=== PATIENT | female | born 1960 | race Caucasian/White ===

== ENCOUNTER 2019-12-16 13:31 | Inpatient (IN) ==
[2019-12-16 14:10] LABS: Basophils % 0.6 % (0.0-0.8); Eosinophils # 0.2 10*3/uL (0.0-0.87); Eosinophils % 2.6 % (0.00-10.9); Hematocrit 56.4 VOL% (35.7-47.0); Hemoglobin 18.1 GM/DL (12.0-16.0); Immature Granulocytes % 0.4 %; Immature Granulocytes Absolute 0.03 #; Lymphocytes # 2.2 10*3/uL (1.4-4.0); Lymphocytes % 31.6 % (21.3-54.2); Mean Corpuscular HGB Conc 32.1 GM/DL (32-36); Mean Corpuscular Volume 78.9 FL (87-102); Mean Platelet Volume 10.5 FL (9.6-12.0); Monocytes % 4.6 % (1.7-12.7); Neutrophils % 60.2 % (38.7-73.9); Platelet Count 109 T/CUMM (130-400); Red Blood Count 7.15 MC/CUMM (3.8-5.5); Red Cell Distribution Width 16.9 % (9.3-17.3)
[2019-12-16 14:23] LABS: INR 1.7; PT Patient Result 17.9 SECS (9.6-12.2)
[2019-12-16 14:29] LABS: Alanine Aminotransferase 25 U/L (13-56); Albumin 4.1 G/DL (3.4-5.0); Alkaline Phosphatase 186 U/L (45-117); Aspartate Amino Transferase 17 U/L (0-37); Blood Urea Nitrogen 27 MG/DL (7-18); Calcium 8.9 MG/DL (8.5-10.1); Estimated Glom Filtration Rate 40 ML/MIN; Glucose 156 MG/DL (74-106); Osmolality,Calculated 277.1 MOS/KG (273-304); Total Protein 7.8 G/DL (6.4-8.3); Troponin I 0.242 NG/ML (0.00-0.045)
[2019-12-16] MEDS ORDERED: POTASSIUM BICARB EFFERVESCENT 25 MEQ TABLET PO ONE (14:36)
[2019-12-16 15:26] LABS: Apearance,Urine CLEAR (Clear); Bilirubin,Urine Negative (Negative); Blood, Urine Negative (Negative); Glucose,Urine (UA) 150 mg/dL (Negative); Hyaline Casts,Urine 7 /LPF (0-3); Ketones,Urine Negative (Negative); Mucus,Urine Occasional /LPF (Occasional); Nitrite,Urine Negative (Negative); Protein,Urine 30 MG/DL; RBC,Urine 1 /HPF (0-4); Squamous Epithelial Cell,Urine Occasional /HPF (0-10); Urine Color Yellow (Yellow); Urine Specific Gravity 1.014 (1.001-1.035); Urine Urobilinogen < 2.0 EU/DL (0.2-1.0); WBC,Urine <1 /HPF (0-6)
[2019-12-16 15:29] LABS: Barbiturates Screen,Urine Negative (Negative); Benzodiazepines Screen,Urine Negative (Negative); Cannabinoid Screen,Urine Negative (Negative); Opiate Screen,Urine Negative (Negative); Phencyclidine Screen,Urine Negative (Negative)
[2019-12-16] MEDS ORDERED: SODIUM CHLORIDE 0.9% 1,000 ML IV STA (15:54)
[2019-12-16] MEDS ORDERED: GLUCAGON 1 MG VIAL IM PRN (15:59)
[2019-12-16] MEDS ORDERED: ALUMINUM/MAGNES/SIMETH MAX STR 30 ML UDCUP PO PRN (15:59)
[2019-12-16] MEDS ORDERED: BISACODYL 5 MG TABLET PO PRN (15:59)
[2019-12-16] MEDS ORDERED: ONDANSETRON 4 MG/2 ML VIAL IV PRN (15:59)
[2019-12-16] MEDS ORDERED: DEXTROSE 10% 250 ML BAG IV PRN (15:59)
[2019-12-16] MEDS ORDERED: SODIUM CHLORIDE 0.9% 1,000 ML IV SCH (16:00)
[2019-12-16] MEDS ORDERED: POTASSIUM CHLORIDE 20 MEQ TABLET PO STA (16:02)
[2019-12-16] MEDS ORDERED: MAGNESIUM SULF RIDER 4 GM in PREMIX 1 EACH IV PRN (16:03)
[2019-12-16] MEDS ORDERED: MAGNESIUM SULF RIDER 2 GM in PREMIX 1 EACH IV PRN (16:03)
[2019-12-16] MEDS ORDERED: ASPIRIN CHEW 81 MG TABLET PO STA (16:13)
[2019-12-16] MEDS ORDERED: SODIUM CHLORIDE 0.9% 500 ML IV STA (16:20)
[2019-12-16 16:23] LABS: Risk Ratio 3.07; VLDL CHOLESTEROL 28.4 MG/DL
[2019-12-16] MEDS ORDERED: LORazepam 2 MG/1 ML VIAL IV PRN (16:42)
[2019-12-16 16:45] LABS: Folate 12.6 NG/ML (5.4-24.0)
[2019-12-16] MEDS ORDERED: WARFARIN 3 MG TABLET PO ONE (17:11)
[2019-12-16] MEDS ORDERED: DIGOXIN 0.125 MG TABLET PO SCH (17:12)
[2019-12-16] MEDS ORDERED: INFLUENZA VIRUS VACCINE 0.5 ML SYRINGE IM ONE (17:23)
[2019-12-16] MEDS: INSULIN REGULAR 100 UNIT/ML SUBCUT SCH ×2 (17:24→21:24)
[2019-12-16] MEDS ORDERED: WARFARIN 5 MG TABLET PO SCH ×2 (18:00)
[2019-12-16] MEDS ORDERED: dilTIAZem Drip 125 MG/125 ML PREMIX IV SCH (18:00)
[2019-12-16 19:05] LABS: Troponin I 0.254 NG/ML (0.00-0.045)
[2019-12-16 19:10] LABS: Free T4 (Free Thyroxine) 1.32 NG/DL (0.76-1.46); Thyroid Stimulating Hormone 0.904 uIU/ml (0.358-3.74)
[2019-12-16 20:23] LABS: Troponin I 0.276 NG/ML (0.00-0.045)
[2019-12-16] MEDS: LACOSAMIDE 50 MG TABLET PO SCH (21:24)
[2019-12-16] MEDS: SILDENAFIL 20 MG TABLET PO SCH (21:24)
[2019-12-16 23:23] LABS: Troponin I 0.216 NG/ML (0.00-0.045)
[2019-12-17] MEDS: DIGOXIN 0.25 MG TABLET PO SCH ×2 (00:01→05:54)
[2019-12-17 05:21] LABS: Basophils % 0.6 % (0.0-0.8); Eosinophils # 0.1 10*3/uL (0.0-0.87); Eosinophils % 1.6 % (0.00-10.9); Hematocrit 45.4 VOL% (35.7-47.0); Hemoglobin 14.7 GM/DL (12.0-16.0); Immature Granulocytes % 0.5 %; Immature Granulocytes Absolute 0.03 #; Lymphocytes # 2.2 10*3/uL (1.4-4.0); Lymphocytes % 34.8 % (21.3-54.2); Mean Corpuscular HGB Conc 32.4 GM/DL (32-36); Mean Corpuscular Volume 78.1 FL (87-102); Mean Platelet Volume 10.6 FL (9.6-12.0); Monocytes % 5.2 % (1.7-12.7); Neutrophils % 57.3 % (38.7-73.9); Platelet Count 127 T/CUMM (130-400); Red Blood Count 5.81 MC/CUMM (3.8-5.5); White Blood Count 6.2 T/CUMM (4-12)
[2019-12-17 05:25] LABS: INR 1.7; PT Patient Result 18.5 SECS (9.6-12.2)
[2019-12-17 06:03] LABS: Calcium 8.7 MG/DL (8.5-10.1); Osmolality,Calculated 275.1 MOS/KG (273-304)
[2019-12-17] MEDS: INSULIN REGULAR 100 UNIT/ML SUBCUT SCH ×2 (08:03→11:05)
[2019-12-17] MEDS: SILDENAFIL 20 MG TABLET PO SCH ×2 (08:07→08:27)
[2019-12-17 08:17] LABS: Apearance,Urine CLEAR (Clear); Bilirubin,Urine Negative (Negative); Blood, Urine Small mg/dL (Negative); Glucose,Urine (UA) Negative (Negative); Ketones,Urine Negative (Negative); Nitrite,Urine Negative (Negative); Protein,Urine Negative; RBC,Urine 2 /HPF (0-4); Squamous Epithelial Cell,Urine Occasional /HPF (0-10); Urine Color Straw (Yellow); Urine Specific Gravity 1.004 (1.001-1.035); Urine Urobilinogen < 2.0 EU/DL (0.2-1.0); WBC,Urine 1 /HPF (0-6)
[2019-12-17] MEDS: LACOSAMIDE 50 MG TABLET PO SCH (08:27)
[2019-12-17 11:08] VITALS: BP 109/58
[2019-12-17] MEDS ORDERED: DIGOXIN 0.125 MG TABLET PO SCH (13:00)
[2019-12-19] MEDS ORDERED: WARFARIN 5 MG TABLET PO SCH (18:00)
== END 2019-12-17 13:58 | disposition home or self-care (01) | DRG 310 ==
LOC: EDBD → EDUNIT# → N.ED 13:31 → N.EDINP 15:59 → SUATTDRO 15:59 → N.TELES 16:43
PROVIDERS: ADMIT Internal Medicine; ATTEND Internal Medicine

== ENCOUNTER 2020-01-25 15:47 | Observation (INO) ==
[2020-01-25 16:38] LABS: Basophils # 0.1 10*3/uL (0.0-0.2); Eosinophils # 0.2 10*3/uL (0.0-0.87); Eosinophils % 3.1 % (0.00-10.9); Hematocrit 48.5 VOL% (35.7-47.0); Hemoglobin 15.9 GM/DL (12.0-16.0); Immature Granulocytes % 0.3 %; Immature Granulocytes Absolute 0.02 #; Lymphocytes # 1.9 10*3/uL (1.4-4.0); Lymphocytes % 32.4 % (21.3-54.2); Mean Corpuscular HGB Conc 32.8 GM/DL (32-36); Mean Corpuscular Volume 80.3 FL (87-102); Mean Platelet Volume 9.2 FL (9.6-12.0); Monocytes % 6.9 % (1.7-12.7); Neutrophils % 56.3 % (38.7-73.9); Platelet Count 105 T/CUMM (130-400); Red Blood Count 6.04 MC/CUMM (3.8-5.5); Red Cell Distribution Width 18.2 % (9.3-17.3); White Blood Count 5.8 T/CUMM (4-12)
[2020-01-25 16:51] LABS: Albumin 3.5 G/DL (3.4-5.0); Bilirubin,Total 0.6 MG/DL (0.2-1.0); Calcium 8.7 MG/DL (8.5-10.1); Osmolality,Calculated 276.5 MOS/KG (273-304); Total Protein 7.3 G/DL (6.4-8.3)
[2020-01-25 16:52] LABS: PT Patient Result 77.3 SECS (9.8-11.9)
[2020-01-25 16:53] LABS: INR 8.1
[2020-01-25] MEDS ORDERED: PHYTONADIONE 10 MG/1 ML AMP SUBCUT STA (16:56)
[2020-01-25] MEDS ORDERED: ONDANSETRON 4 MG/2 ML VIAL IV PRN (18:00)
[2020-01-25] MEDS ORDERED: DEXTROSE 10% 250 ML BAG IV PRN (18:00)
[2020-01-25] MEDS ORDERED: DOCUSATE SODIUM 100 MG CAPSULE PO PRN (18:00)
[2020-01-25] MEDS ORDERED: GLUCAGON 1 MG VIAL IM PRN (18:00)
[2020-01-25] MEDS ORDERED: diphenhydrAMINE CAP 25 MG CAPSULE PO PRN (18:04)
[2020-01-25] MEDS ORDERED: POTASSIUM CHLORIDE 20 MEQ TABLET PO PRN (18:26)
[2020-01-25] MEDS: SILDENAFIL 20 MG TABLET PO SCH (20:59)
[2020-01-25] MEDS: INSULIN LISPRO 100 UNIT/ML SUBCUT SCH (20:59)
[2020-01-25] MEDS: SODIUM CHLORIDE 0.9% 1,000 ML IV SCH (20:59)
[2020-01-26] MEDS: SODIUM CHLORIDE 0.9% 1,000 ML IV SCH (05:00)
[2020-01-26 05:47] LABS: Basophils # 0.1 10*3/uL (0.0-0.2); Basophils % 0.9 % (0.0-0.8); Eosinophils # 0.2 10*3/uL (0.0-0.87); Eosinophils % 2.8 % (0.00-10.9); Hematocrit 43.8 VOL% (35.7-47.0); Hemoglobin 14.3 GM/DL (12.0-16.0); Immature Granulocytes % 0.5 %; Immature Granulocytes Absolute 0.03 #; Lymphocytes # 2.3 10*3/uL (1.4-4.0); Lymphocytes % 40.7 % (21.3-54.2); Mean Corpuscular HGB Conc 32.6 GM/DL (32-36); Mean Corpuscular Volume 80.4 FL (87-102); Mean Platelet Volume 10.3 FL (9.6-12.0); Neutrophils % 49.1 % (38.7-73.9); Platelet Count 94 T/CUMM (130-400); Red Blood Count 5.45 MC/CUMM (3.8-5.5); Red Cell Distribution Width 17.8 % (9.3-17.3); White Blood Count 5.7 T/CUMM (4-12)
[2020-01-26 06:01] LABS: INR 4.1; PT Patient Result 41.2 SECS (9.8-11.9)
[2020-01-26 06:18] LABS: Platelet Estimate Decreased
[2020-01-26 06:19] LABS: Albumin 2.9 G/DL (3.4-5.0); Calcium 7.9 MG/DL (8.5-10.1); Osmolality,Calculated 286.1 MOS/KG (273-304); Thyroid Stimulating Hormone 2.05 uIU/ml (0.358-3.74); Total Protein 5.8 G/DL (6.4-8.3)
[2020-01-26] MEDS ORDERED: FUROSEMIDE 40 MG TABLET PO SCH (09:00)
[2020-01-26] MEDS ORDERED: POTASSIUM CHLORIDE 10 MEQ TABLET PO SCH (09:00)
[2020-01-26] MEDS: SILDENAFIL 20 MG TABLET PO SCH (10:10)
[2020-01-26] MEDS: INSULIN LISPRO 100 UNIT/ML SUBCUT SCH (10:12)
[2020-01-26 12:01] VITALS: BP 115/60
[2020-01-27] MEDS ORDERED: DIGOXIN 0.125 MG TABLET PO SCH (08:00)
== END 2020-01-26 13:05 | disposition home or self-care (01) ==
LOC: N.EDINP 15:47 → N.ED 15:47 → N.TELES 17:51
PROVIDERS: ADMIT Internal Medicine; ATTEND Internal Medicine

== ENCOUNTER 2020-01-31 23:59 | Inpatient (IN) ==
[2020-02-01] MEDS ORDERED: INSULIN REGULAR 100 UNIT/ML IV STA (00:21)
[2020-02-01] MEDS ORDERED: ONDANSETRON 4 MG/2 ML VIAL IV STA ×3 (00:21→03:45)
[2020-02-01] MEDS ORDERED: SODIUM CHLORIDE 0.9% 1,000 ML IV STA ×2 (00:21→01:37)
[2020-02-01 01:04] LABS: Basophils # 0.1 10*3/uL (0.0-0.2); Basophils % 1.1 % (0.0-0.8); Eosinophils # 0.1 10*3/uL (0.0-0.87); Eosinophils % 1.1 % (0.00-10.9); Hemoglobin 17.5 GM/DL (12.0-16.0); Immature Granulocytes % 0.4 %; Immature Granulocytes Absolute 0.03 #; Lymphocytes # 2.2 10*3/uL (1.4-4.0); Lymphocytes % 30.8 % (21.3-54.2); Mean Corpuscular HGB Conc 32.4 GM/DL (32-36); Mean Corpuscular Volume 81.1 FL (87-102); Mean Platelet Volume 10.9 FL (9.6-12.0); Monocytes % 7.2 % (1.7-12.7); Neutrophils % 59.4 % (38.7-73.9); Platelet Count 161 T/CUMM (130-400); Red Blood Count 6.66 MC/CUMM (3.8-5.5); Red Cell Distribution Width 19.7 % (9.3-17.3); White Blood Count 7.3 T/CUMM (4-12)
[2020-02-01 01:20] LABS: Alanine Aminotransferase 53 U/L (13-56); Albumin 4.1 G/DL (3.4-5.0); Alkaline Phosphatase 269 U/L (45-117); Amylase 19 U/L (25-115); Aspartate Amino Transferase 42 U/L (0-37); Blood Urea Nitrogen 32 MG/DL (7-18); Calcium 9.7 MG/DL (8.5-10.1); Estimated Glom Filtration Rate 21 ML/MIN; Glucose 458 MG/DL (74-106); Osmolality,Calculated 286.8 MOS/KG (273-304); Total Protein 8.2 G/DL (6.4-8.3)
[2020-02-01] MEDS ORDERED: PIPERACILLIN/TAZOBACTAM 3,375 MG in SODIUM CHLORIDE 0.9% 100 ML IV STA (01:27)
[2020-02-01] MEDS ORDERED: PIPERACILLIN/TAZOBACTAM 3,375 MG VIAL IV ONE (01:29)
[2020-02-01 01:33] LABS: Apearance,Urine Slightly Hazy (Clear); Bacteria,Urine Many /HPF (Few); Bilirubin,Urine Negative (Negative); Blood, Urine Moderate mg/dL (Negative); Calcium Oxalate Crystals,Urine Occasional /HPF (Few); Glucose,Urine (UA) >=500 mg/dL (Negative); Ketones,Urine 80 mg/dL (Negative); Mucus,Urine Occasional /LPF (Occasional); Nitrite,Urine Negative (Negative); Protein,Urine Negative; RBC,Urine 3 /HPF (0-4); Squamous Epithelial Cell,Urine Occasional /HPF (0-10); Urine Color Yellow (Yellow); Urine Specific Gravity 1.016 (1.001-1.035); Urine Urobilinogen < 2.0 EU/DL (0.2-1.0)
[2020-02-01 01:48] LABS: ABG Base Excess -8.3 MMOL/L (-2.5-2.5); ABG HCO3 17.9 MMOL/L (20-26); ABG Oxygen Saturation 97.8 % (95-100); ABG PCO2 25.5 MM HG (35-48); ABG PH 7.381 (7.35-7.45); ABG PO2 90.9 MM HG (80-95); ABG TCO2 12.8 MMOL/L (23-27)
[2020-02-01 02:24] LABS: INR 1.1; PT Patient Result 11.3 SECS (9.8-11.9)
[2020-02-01] MEDS ORDERED: MAGNESIUM SULF RIDER 2 GM in PREMIX 1 EACH IV PRN (02:24)
[2020-02-01] MEDS ORDERED: DEXTROSE 50% 25 GM/50 ML VIAL IV PRN ×2 (02:24)
[2020-02-01] MEDS ORDERED: MAGNESIUM SULF RIDER 4 GM in PREMIX 1 EACH IV PRN (02:24)
[2020-02-01] MEDS ORDERED: SODIUM PHOSPHATE IV PRN (02:24)
[2020-02-01] MEDS ORDERED: SODIUM BICARB INJ 100 MEQ in STERILE WATER INJ 400 ML IV PRN (02:24)
[2020-02-01] MEDS ORDERED: SODIUM CHLORIDE 0.9% IV PRN (02:24)
[2020-02-01] MEDS ORDERED: SODIUM CHLORIDE 0.9% 1,000 ML IV ONE ×2 (02:24→23:29)
[2020-02-01] MEDS ORDERED: INSULIN REGULAR 100 UNIT/ML IV ONE (02:24)
[2020-02-01] MEDS ORDERED: PROMETHAZINE 25 MG/1 ML VIAL IM STA (02:29)
[2020-02-01] MEDS ORDERED: PROMETHAZINE 25 MG/1 ML VIAL ONE (02:29)
[2020-02-01] MEDS ORDERED: INSULIN REGULAR DRIP 100 ML IV SCH (02:30)
[2020-02-01 03:37] LABS: Basophils # 0.1 10*3/uL (0.0-0.2); Basophils % 0.7 % (0.0-0.8); Eosinophils # 0.1 10*3/uL (0.0-0.87); Hematocrit 49.3 VOL% (35.7-47.0); Hemoglobin 16.3 GM/DL (12.0-16.0); Immature Granulocytes % 0.6 %; Immature Granulocytes Absolute 0.04 #; Lymphocytes # 1.6 10*3/uL (1.4-4.0); Lymphocytes % 23.9 % (21.3-54.2); Mean Corpuscular HGB Conc 33.1 GM/DL (32-36); Mean Corpuscular Volume 79.8 FL (87-102); Mean Platelet Volume 9.4 FL (9.6-12.0); Monocytes % 8.3 % (1.7-12.7); Neutrophils % 65.5 % (38.7-73.9); Platelet Count 120 T/CUMM (130-400); Red Blood Count 6.18 MC/CUMM (3.8-5.5); Red Cell Distribution Width 19.3 % (9.3-17.3); White Blood Count 6.8 T/CUMM (4-12)
[2020-02-01 03:39] LABS: ABG Base Excess -4.5 MMOL/L (-2.5-2.5); ABG HCO3 20.7 MMOL/L (20-26); ABG Oxygen Saturation 94.8 % (95-100); ABG PCO2 34.1 MM HG (35-48); ABG PH 7.374 (7.35-7.45); ABG PO2 71.3 MM HG (80-95)
[2020-02-01 03:57] LABS: Calcium 8.5 MG/DL (8.5-10.1); Osmolality,Calculated 282.7 MOS/KG (273-304)
[2020-02-01] MEDS: SODIUM CHLORIDE 0.9% 1,000 ML IV SCH ×2 (04:39→07:25)
[2020-02-01] MEDS: POTASSIUM CHLORIDE RIDER 10 MEQ in PREMIX 1 EACH IV PRN ×2 (05:19→06:19)
[2020-02-01] MEDS ORDERED: DEXT 5% NACL 0.45% KCL 40 MEQ 40 MEQ/1,000 ML BAG IV SCH (06:00)
[2020-02-01] MEDS ORDERED: SODIUM CHLORIDE 0.9% 1,000 ML IV SCH (07:24)
[2020-02-01] MEDS: ONDANSETRON 4 MG/2 ML VIAL IV PRN ×3 (08:24→19:36)
[2020-02-01] MEDS ORDERED: GLUCAGON 1 MG VIAL IM PRN (08:26)
[2020-02-01] MEDS ORDERED: DEXTROSE 10% 250 ML BAG IV PRN (08:26)
[2020-02-01 08:27] LABS: Calcium 7.8 MG/DL (8.5-10.1)
[2020-02-01] MEDS ORDERED: PROMETHAZINE 25 MG/1 ML VIAL IM PRN (08:36)
[2020-02-01 08:52] LABS: Troponin I 0.227 NG/ML (0.00-0.045)
[2020-02-01] MEDS ORDERED: LACTATED RINGERS 1,000 ML IV SCH (09:00)
[2020-02-01] MEDS: INSULIN REGULAR 100 UNIT/ML SUBCUT SCH ×7 (09:02→21:40)
[2020-02-01] MEDS: DIGOXIN 0.125 MG TABLET PO SCH (09:02)
[2020-02-01] MEDS: POTASSIUM CHLORIDE 20 MEQ TABLET PO SCH ×3 (09:03→14:11)
[2020-02-01] MEDS: PIPERACILLIN/TAZOBACTAM 3,375 MG in SODIUM CHLORIDE 0.9% 100 ML IV SCH ×2 (09:35→17:16)
[2020-02-01] MEDS: SILDENAFIL 20 MG TABLET PO SCH ×3 (09:35→21:45)
[2020-02-01] MEDS: DEXTROSE 5% LACTATED RINGERS 1,000 ML IV SCH ×3 (11:48→23:05)
[2020-02-01] MEDS: CHOLESTYRAMINE 4 GM PACK PO SCH ×2 (14:11→21:45)
[2020-02-01 15:47] LABS: Osmolality,Calculated 279.8 MOS/KG (273-304)
[2020-02-01 16:11] LABS: Troponin I 0.239 NG/ML (0.00-0.045)
[2020-02-01] MEDS ORDERED: MAGNESIUM SULF RIDER 2 GM in PREMIX 1 EACH IV ONE (16:22)
[2020-02-01] MEDS ORDERED: SODIUM CHLORIDE 0.45% 1,000 ML IV SCH (19:24)
[2020-02-01] MEDS: CHOLECALCIFEROL 1,000 UNIT TABLET PO SCH (21:45)
[2020-02-01] MEDS: tiZANidine 4 MG TABLET PO PRN (21:46)
[2020-02-02 00:01] LABS: Troponin I 0.187 NG/ML (0.00-0.045)
[2020-02-02] MEDS: INSULIN REGULAR 100 UNIT/ML SUBCUT SCH ×8 (00:40→21:37)
[2020-02-02] MEDS: PIPERACILLIN/TAZOBACTAM 3,375 MG in SODIUM CHLORIDE 0.9% 100 ML IV SCH ×3 (00:41→17:25)
[2020-02-02] MEDS ORDERED: BISMUTH SUBSALICYLATE 30 ML/524 MG 240 ML/BOTTLE PO PRN (03:21)
[2020-02-02] MEDS: ONDANSETRON 4 MG/2 ML VIAL IV PRN ×4 (03:36→21:38)
[2020-02-02 05:39] LABS: Apearance,Urine CLOUDY (Clear); Bacteria,Urine Occasional /HPF (Few); Bilirubin,Urine Negative (Negative); Blood, Urine Large mg/dL (Negative); Glucose,Urine (UA) >=500 mg/dL (Negative); Hyaline Casts,Urine 8 /LPF (0-3); Ketones,Urine 5 mg/dL (Negative); Mucus,Urine Occasional /LPF (Occasional); Nitrite,Urine Negative (Negative); Protein,Urine 30 MG/DL; RBC,Urine 139 /HPF (0-4); Uric Acid Crystals,Urine Few /HPF (<1); Urine Color Yellow (Yellow); Urine Specific Gravity 1.017 (1.001-1.035); Urine Urobilinogen < 2.0 EU/DL (0.2-1.0); WBC,Urine 63 /HPF (0-6)
[2020-02-02 06:04] LABS: Calcium 8.2 MG/DL (8.5-10.1); Osmolality,Calculated 276.5 MOS/KG (273-304)
[2020-02-02] MEDS: POTASSIUM CHLORIDE 20 MEQ TABLET PO SCH (08:11)
[2020-02-02] MEDS: SILDENAFIL 20 MG TABLET PO SCH ×3 (08:12→21:36)
[2020-02-02] MEDS: CHOLESTYRAMINE 4 GM PACK PO SCH (08:12)
[2020-02-02] MEDS: DEXTROSE 5% LACTATED RINGERS 1,000 ML IV SCH (08:40)
[2020-02-02] MEDS: LOPERAMIDE 2 MG CAPSULE PO PRN ×2 (16:47→21:36)
[2020-02-02] MEDS ORDERED: INSULIN GLARGINE 100 UNIT/ML SUBCUT SCH (21:00)
[2020-02-02] MEDS: CHOLECALCIFEROL 1,000 UNIT TABLET PO SCH (21:36)
[2020-02-02] MEDS: tiZANidine 4 MG TABLET PO PRN (21:36)
[2020-02-03] MEDS: PIPERACILLIN/TAZOBACTAM 3,375 MG in SODIUM CHLORIDE 0.9% 100 ML IV SCH ×2 (01:17→09:03)
[2020-02-03] MEDS: DEXTROSE 5% LACTATED RINGERS 1,000 ML IV SCH ×2 (01:21→09:09)
[2020-02-03] MEDS: INSULIN REGULAR 100 UNIT/ML SUBCUT SCH ×3 (01:22→09:01)
[2020-02-03] MEDS: LOPERAMIDE 2 MG CAPSULE PO PRN (01:22)
[2020-02-03] MEDS: ONDANSETRON 4 MG/2 ML VIAL IV PRN (09:02)
[2020-02-03] MEDS: DIGOXIN 0.125 MG TABLET PO SCH (09:03)
[2020-02-03] MEDS: POTASSIUM CHLORIDE 20 MEQ TABLET PO SCH ×2 (09:03→09:05)
[2020-02-03] MEDS: SILDENAFIL 20 MG TABLET PO SCH (09:03)
[2020-02-03 10:52] VITALS: BP 109/59
[2020-02-05] MEDS ORDERED: WARFARIN 5 MG TABLET PO SCH (20:00)
== END 2020-02-03 11:22 | disposition home or self-care (01) | DRG 638 ==
LOC: N.ED 23:59 → SUATTDRO 02-01 02:24 → N.EDINP 02-01 02:24 → N.ICU 02-01 03:59 → N.TELES 02-02 09:48
PROVIDERS: ADMIT Internal Medicine; ATTEND Internal Medicine Geriatric Medicine

== ENCOUNTER 2020-02-08 11:59 | Observation (INO) ==
[2020-02-08 13:32] LABS: Basophils # 0.1 10*3/uL (0.0-0.2); Basophils % 1.1 % (0.0-0.8); Eosinophils # 0.2 10*3/uL (0.0-0.87); Eosinophils % 3.5 % (0.00-10.9); Hemoglobin 14.9 GM/DL (12.0-16.0); Immature Granulocytes % 0.4 %; Immature Granulocytes Absolute 0.02 #; Lymphocytes # 2.4 10*3/uL (1.4-4.0); Lymphocytes % 41.5 % (21.3-54.2); Mean Corpuscular HGB Conc 32.4 GM/DL (32-36); Mean Corpuscular Volume 82.7 FL (87-102); Mean Platelet Volume 10.1 FL (9.6-12.0); Monocytes % 7.4 % (1.7-12.7); Neutrophils % 46.1 % (38.7-73.9); Platelet Count 103 T/CUMM (130-400); Red Blood Count 5.56 MC/CUMM (3.8-5.5); Red Cell Distribution Width 19.9 % (9.3-17.3); White Blood Count 5.7 T/CUMM (4-12)
[2020-02-08 13:48] LABS: INR 1.7; PT Patient Result 17.7 SECS (9.8-11.9); Partial Thromboplastin Time 33.8 SECS (23.9-33.8)
[2020-02-08 13:53] LABS: Alanine Aminotransferase 34 U/L (13-56); Albumin 2.5 G/DL (3.4-5.0); Alkaline Phosphatase 305 U/L (45-117); Aspartate Amino Transferase 31 U/L (0-37); Blood Urea Nitrogen 10 MG/DL (7-18); Calcium 8.1 MG/DL (8.5-10.1); Estimated Glom Filtration Rate 42 ML/MIN; Ferritin 33.9 ng/ml (8-252); Glucose 80 MG/DL (74-106); Osmolality,Calculated 263.4 MOS/KG (273-304); Total Protein 5.8 G/DL (6.4-8.3)
[2020-02-08 13:54] LABS: Troponin I 0.168 NG/ML (0.00-0.045)
[2020-02-08 14:24] LABS: Apearance,Urine CLEAR (Clear); Bacteria,Urine Occasional /HPF (Few); Bilirubin,Urine Negative (Negative); Blood, Urine Negative (Negative); Glucose,Urine (UA) Negative (Negative); Hyaline Casts,Urine 4 /LPF (0-3); Ketones,Urine Negative (Negative); Mucus,Urine Occasional /LPF (Occasional); Nitrite,Urine Negative (Negative); Protein,Urine Negative; RBC,Urine <1 /HPF (0-4); Urine Color Straw (Yellow); Urine Specific Gravity 1.004 (1.001-1.035); Urine Urobilinogen < 2.0 EU/DL (0.2-1.0); WBC,Urine <1 /HPF (0-6)
[2020-02-08 14:32] LABS: Barbiturates Screen,Urine Negative (Negative); Benzodiazepines Screen,Urine Negative (Negative); Cannabinoid Screen,Urine Negative (Negative); Opiate Screen,Urine Negative (Negative); Phencyclidine Screen,Urine Negative (Negative)
[2020-02-08] MEDS ORDERED: LACTULOSE 20 GM/30 ML UDCUP PO PRN (15:09)
[2020-02-08] MEDS ORDERED: GLUCAGON 1 MG VIAL IM PRN (15:09)
[2020-02-08] MEDS ORDERED: DEXTROSE 10% 250 ML BAG IV PRN (15:09)
[2020-02-08] MEDS ORDERED: guaiFENesin/DM ER 600-30 MG TABLET PO PRN (15:09)
[2020-02-08] MEDS ORDERED: FUROSEMIDE 40 MG/4 ML VIAL IV STA (15:15)
[2020-02-08] MEDS ORDERED: diphenhydrAMINE CAP 25 MG CAPSULE PO PRN (15:16)
[2020-02-08] MEDS: INSULIN REGULAR 100 UNIT/ML SUBCUT SCH ×2 (17:08→22:10)
[2020-02-08] MEDS ORDERED: WARFARIN 1 MG TABLET PO ONE (18:00)
[2020-02-08] MEDS: FUROSEMIDE 40 MG/4 ML VIAL IV SCH (18:11)
[2020-02-08] MEDS ORDERED: INSULIN GLARGINE 100 UNIT/ML SUBCUT SCH (21:00)
[2020-02-08] MEDS: SILDENAFIL 20 MG TABLET PO SCH (22:10)
[2020-02-09 06:49] LABS: Basophils % 0.8 % (0.0-0.8); Eosinophils # 0.2 10*3/uL (0.0-0.87); Eosinophils % 4.1 % (0.00-10.9); Hematocrit 40.3 VOL% (35.7-47.0); Hemoglobin 13.3 GM/DL (12.0-16.0); Immature Granulocytes % 0.4 %; Immature Granulocytes Absolute 0.02 #; Lymphocytes # 2.2 10*3/uL (1.4-4.0); Lymphocytes % 41.4 % (21.3-54.2); Mean Corpuscular Volume 82.8 FL (87-102); Mean Platelet Volume 10.1 FL (9.6-12.0); Neutrophils % 44.3 % (38.7-73.9); Red Blood Count 4.87 MC/CUMM (3.8-5.5); Red Cell Distribution Width 19.5 % (9.3-17.3); White Blood Count 5.3 T/CUMM (4-12)
[2020-02-09 06:56] LABS: Platelet Count 91 T/CUMM (130-400)
[2020-02-09 06:59] LABS: INR 1.7
[2020-02-09 07:19] LABS: Calcium 7.6 MG/DL (8.5-10.1); Risk Ratio 3.3; VLDL CHOLESTEROL 33.6 MG/DL
[2020-02-09 07:26] LABS: Anisocytosis 2+; Macrocytosis Slight; Platelet Estimate Decreased
[2020-02-09] MEDS ORDERED: MAGNESIUM OXIDE 400 MG TABLET PO ONE (07:53)
[2020-02-09] MEDS: INSULIN REGULAR 100 UNIT/ML SUBCUT SCH ×2 (08:02→11:49)
[2020-02-09 08:07] VITALS: BP 102/71
[2020-02-09] MEDS ORDERED: ONDANSETRON 4 MG/2 ML VIAL IV PRN (08:20)
[2020-02-09] MEDS: FUROSEMIDE 40 MG/4 ML VIAL IV SCH (08:31)
[2020-02-09] MEDS: SILDENAFIL 20 MG TABLET PO SCH (08:31)
[2020-02-09] MEDS ORDERED: POTASSIUM CHLORIDE 10 MEQ TABLET PO SCH (09:00)
[2020-02-09] MEDS ORDERED: tiZANidine 4 MG TABLET PO PRN (10:07)
[2020-02-09] MEDS ORDERED: WARFARIN 5 MG TABLET PO ONE (10:14)
[2020-02-09] MEDS ORDERED: LACOSAMIDE 50 MG TABLET PO SCH (10:30)
[2020-02-09] MEDS ORDERED: CHOLECALCIFEROL 1,000 UNIT TABLET PO SCH (21:00)
[2020-02-10] MEDS ORDERED: DIGOXIN 0.125 MG TABLET PO SCH (08:00)
[2020-02-10] MEDS ORDERED: AMBRISENTAN 10 MG PO SCH (09:00)
[2020-02-12] MEDS ORDERED: WARFARIN 2.5 MG TABLET PO SCH (18:00)
== END 2020-02-09 12:17 | disposition home or self-care (01) ==
LOC: N.ED 11:59 → N.EDINP 11:59 → N.TELEN 15:50
PROVIDERS: ADMIT Internal Medicine; ATTEND Internal Medicine

== ENCOUNTER 2020-05-31 15:25 | Observation (INO) ==
[2020-05-31] MEDS ORDERED: GLUCAGON 1 MG VIAL IM PRN ×2 (17:02→18:42)
[2020-05-31] MEDS ORDERED: DEXTROSE 50% 25 GM/50 ML VIAL IV PRN ×3 (17:02→18:42)
[2020-05-31 17:35] LABS: Basophils # 0.1 10*3/uL (0.0-0.2); Basophils % 1.2 % (0.0-0.8); Eosinophils # 0.1 10*3/uL (0.0-0.87); Eosinophils % 1.6 % (0.00-10.9); Hematocrit 43.2 VOL% (35.7-47.0); Hemoglobin 13.5 GM/DL (12.0-16.0); Immature Granulocytes % 0.4 %; Immature Granulocytes Absolute 0.02 #; Lymphocytes # 1.5 10*3/uL (1.4-4.0); Lymphocytes % 29.9 % (21.3-54.2); Mean Corpuscular HGB Conc 31.3 GM/DL (32-36); Mean Corpuscular Volume 70.9 FL (87-102); Monocytes % 7.6 % (1.7-12.7); Neutrophils % 59.3 % (38.7-73.9); Platelet Count 52 T/CUMM (130-400); Red Blood Count 6.09 MC/CUMM (3.8-5.5); Red Cell Distribution Width 18.9 % (9.3-17.3); White Blood Count 5.1 T/CUMM (4-12)
[2020-05-31 18:10] LABS: PT Patient Result > 178.9 SECS (9.8-11.9)
[2020-05-31 18:13] LABS: Albumin 3.4 G/DL (3.4-5.0); Bilirubin,Total 1.8 MG/DL (0.2-1.0); Calcium 8.6 MG/DL (8.5-10.1); Osmolality,Calculated 275.2 MOS/KG (273-304); Total Protein 6.5 G/DL (6.4-8.3)
[2020-05-31 18:15] LABS: INR 22.1
[2020-05-31] MEDS ORDERED: diphenhydrAMINE CAP 25 MG CAPSULE PO PRN (18:36)
[2020-05-31] MEDS ORDERED: tiZANidine 4 MG TABLET PO PRN (18:36)
[2020-05-31] MEDS ORDERED: ONDANSETRON 4 MG/2 ML VIAL IV PRN (18:42)
[2020-05-31] MEDS ORDERED: ACETAMINOPHEN 325 MG TABLET PO PRN (18:42)
[2020-05-31] MEDS ORDERED: TREPROSTINIL MISC INJ SCH (20:30)
[2020-05-31] MEDS ORDERED: PHYTONADIONE 5 MG/5 ML ORAL.SYR PO SCH (21:00)
[2020-05-31] MEDS: SILDENAFIL 20 MG TABLET PO SCH (21:28)
[2020-05-31] MEDS: LACOSAMIDE 50 MG TABLET PO SCH (21:28)
[2020-05-31] MEDS: CHOLECALCIFEROL 1,000 UNIT TABLET PO SCH (21:28)
[2020-05-31] MEDS: INSULIN GLARGINE 100 UNIT/ML SUBCUT SCH (22:26)
[2020-06-01 01:34] LABS: Hematocrit 39.6 VOL% (35.7-47.0); Hemoglobin 12.3 GM/DL (12.0-16.0)
[2020-06-01 06:09] LABS: Basophils # 0.1 10*3/uL (0.0-0.2); Basophils % 1.1 % (0.0-0.8); Eosinophils # 0.1 10*3/uL (0.0-0.87); Eosinophils % 2.2 % (0.00-10.9); Hematocrit 39.5 VOL% (35.7-47.0); Hemoglobin 12.6 GM/DL (12.0-16.0); Immature Granulocytes % 0.7 %; Immature Granulocytes Absolute 0.04 #; Lymphocytes # 1.6 10*3/uL (1.4-4.0); Lymphocytes % 30.3 % (21.3-54.2); Mean Corpuscular HGB Conc 31.9 GM/DL (32-36); Mean Corpuscular Volume 69.8 FL (87-102); Monocytes % 8.6 % (1.7-12.7); Neutrophils % 57.1 % (38.7-73.9); Platelet Count 45 T/CUMM (130-400); Red Blood Count 5.66 MC/CUMM (3.8-5.5); Red Cell Distribution Width 18.6 % (9.3-17.3); White Blood Count 5.4 T/CUMM (4-12)
[2020-06-01 06:36] LABS: Band Neutrophils 1 % (0-10); Eosinophils 3 % (0-10); Lymphocytes 18 % (20-55); Segmented Neutrophils 69 % (50-85); Total Cells Counted 100
[2020-06-01 06:37] LABS: Anisocytosis 1+; Hypochromasia 1+; Platelet Estimate Decreased
[2020-06-01 07:01] LABS: Calcium 7.9 MG/DL (8.5-10.1)
[2020-06-01 07:56] LABS: PT Patient Result 64.8 SECS (9.8-11.9)
[2020-06-01] MEDS ORDERED: FUROSEMIDE 20 MG/2 ML VIAL IV SCH (08:00)
[2020-06-01 08:18] LABS: Albumin 2.8 G/DL (3.4-5.0); Bilirubin,Direct 0.6 MG/DL (0.0-0.20); Bilirubin,Indirect 0.8 MG/DL (0.0-1.0); Bilirubin,Total 1.4 MG/DL (0.2-1.0); Total Protein 5.6 G/DL (6.4-8.3)
[2020-06-01 08:44] LABS: INR 6.7
[2020-06-01] MEDS ORDERED: INSULIN REGULAR 100 UNIT/ML SUBCUT SCH (09:00)
[2020-06-01] MEDS: SILDENAFIL 20 MG TABLET PO SCH ×3 (10:14→21:22)
[2020-06-01] MEDS: POTASSIUM CHLORIDE 20 MEQ TABLET PO SCH (10:14)
[2020-06-01] MEDS: INSULIN REGULAR 100 UNIT/ML SUBCUT SCH (10:15)
[2020-06-01] MEDS: DIGOXIN 0.125 MG TABLET PO SCH (10:15)
[2020-06-01] MEDS: LACOSAMIDE 50 MG TABLET PO SCH ×2 (10:15→21:22)
[2020-06-01] MEDS: PANTOPRAZOLE 40 MG TABLET PO SCH (10:15)
[2020-06-01] MEDS: AMBRISENTAN 10 MG PO SCH (10:16)
[2020-06-01] MEDS: FUROSEMIDE 40 MG/4 ML VIAL IV SCH (17:35)
[2020-06-01] MEDS: CHOLECALCIFEROL 1,000 UNIT TABLET PO SCH (21:22)
[2020-06-02] MEDS: INSULIN GLARGINE 100 UNIT/ML SUBCUT SCH (02:19)
[2020-06-02 04:55] LABS: INR 2.1; PT Patient Result 21.6 SECS (9.8-11.9)
[2020-06-02 05:19] LABS: Albumin 2.9 G/DL (3.4-5.0); Bilirubin,Total 1.9 MG/DL (0.2-1.0); Calcium 7.9 MG/DL (8.5-10.1); Osmolality,Calculated 272.5 MOS/KG (273-304); Total Protein 5.7 G/DL (6.4-8.3)
[2020-06-02 07:37] VITALS: BP 92/48
[2020-06-02] MEDS: AMBRISENTAN 10 MG PO SCH (08:22)
[2020-06-02] MEDS: INSULIN REGULAR 100 UNIT/ML SUBCUT SCH (08:23)
[2020-06-02] MEDS: PANTOPRAZOLE 40 MG TABLET PO SCH (09:31)
[2020-06-02] MEDS: LACOSAMIDE 50 MG TABLET PO SCH (09:31)
[2020-06-02] MEDS: FUROSEMIDE 40 MG/4 ML VIAL IV SCH (09:31)
[2020-06-02] MEDS: DIGOXIN 0.125 MG TABLET PO SCH (09:31)
[2020-06-02] MEDS: SILDENAFIL 20 MG TABLET PO SCH (09:31)
[2020-06-02] MEDS: POTASSIUM CHLORIDE 20 MEQ TABLET PO SCH (09:31)
== END 2020-06-02 12:35 | disposition home or self-care (01) ==
LOC: N.3E → SUATTDRO 16:40 → N.3E 17:00
PROVIDERS: ADMIT Internal Medicine; ATTEND Internal Medicine

== ENCOUNTER 2020-07-08 17:13 | Observation (INO) ==
[2020-07-08 18:00] LABS: Basophils # 0.1 10*3/uL (0.0-0.2); Basophils % 0.9 % (0.0-0.8); Eosinophils # 0.2 10*3/uL (0.0-0.87); Eosinophils % 2.6 % (0.00-10.9); Hematocrit 44.7 VOL% (35.7-47.0); Hemoglobin 14.3 GM/DL (12.0-16.0); Immature Granulocytes % 0.7 %; Immature Granulocytes Absolute 0.06 #; Lymphocytes # 2.4 10*3/uL (1.4-4.0); Lymphocytes % 28.4 % (21.3-54.2); Mean Corpuscular Volume 69.1 FL (87-102); Monocytes % 5.8 % (1.7-12.7); Neutrophils % 61.6 % (38.7-73.9); Red Blood Count 6.47 MC/CUMM (3.8-5.5); White Blood Count 8.5 T/CUMM (4-12)
[2020-07-08 18:02] LABS: Platelet Count 75 T/CUMM (130-400)
[2020-07-08 18:17] LABS: Calcium 8.5 MG/DL (8.5-10.1); Osmolality,Calculated 271.9 MOS/KG (273-304); Total Protein 6.7 G/DL (6.4-8.3)
[2020-07-08 18:22] LABS: Anisocytosis 1+; Burr Cells 1+
[2020-07-08 18:23] LABS: Elliptocytes Few; Platelet Estimate Decreased; Polychromasia Few; Schistocytes Few
[2020-07-08 19:39] LABS: INR 1.8; PT Patient Result 18.3 SECS (9.8-11.9)
[2020-07-08] MEDS ORDERED: FUROSEMIDE 20 MG/2 ML VIAL IV STA (19:41)
[2020-07-08] MEDS ORDERED: ACETAMINOPHEN 325 MG TABLET PO PRN (19:42)
[2020-07-08] MEDS ORDERED: ONDANSETRON 4 MG/2 ML VIAL IV PRN (19:42)
[2020-07-08] MEDS ORDERED: MORPHINE 4 MG/1 ML VIAL IV PRN (19:42)
[2020-07-08] MEDS ORDERED: GLUCAGON 1 MG VIAL IM PRN (19:42)
[2020-07-08] MEDS ORDERED: DEXTROSE 50% 25 GM/50 ML VIAL IV PRN (19:42)
[2020-07-08] MEDS ORDERED: ENOXAPARIN 60 MG/0.6 ML SYRINGE SUBCUT SCH (20:30)
[2020-07-08] MEDS: INSULIN REGULAR 100 UNIT/ML SUBCUT SCH (22:15)
[2020-07-08] MEDS ORDERED: INFLUENZA VIRUS VACCINE 0.5 ML SYRINGE IM ONE (22:37)
[2020-07-09] MEDS: ALBUTEROL/IPRATROPIUM 3 ML NEB RESP TX SCH ×4 (01:07→19:17)
[2020-07-09 06:35] LABS: Albumin 2.7 G/DL (3.4-5.0); Bilirubin,Total 1.6 MG/DL (0.2-1.0); Calcium 8.1 MG/DL (8.5-10.1); Osmolality,Calculated 275.5 MOS/KG (273-304); Total Protein 6.1 G/DL (6.4-8.3)
[2020-07-09] MEDS ORDERED: POTASSIUM CHLORIDE 20 MEQ TABLET PO PRN (07:47)
[2020-07-09] MEDS ORDERED: FUROSEMIDE 40 MG/4 ML VIAL IV SCH (08:00)
[2020-07-09] MEDS: INSULIN REGULAR 100 UNIT/ML SUBCUT SCH ×4 (09:28→21:35)
[2020-07-09] MEDS ORDERED: tiZANidine 4 MG TABLET PO PRN (10:37)
[2020-07-09] MEDS ORDERED: diphenhydrAMINE CAP 25 MG CAPSULE PO PRN (10:37)
[2020-07-09] MEDS ORDERED: IBUPROFEN 800 MG TABLET PO PRN (10:37)
[2020-07-09] MEDS ORDERED: POTASSIUM CHLORIDE 20 MEQ TABLET PO ONE (10:43)
[2020-07-09] MEDS ORDERED: WARFARIN 2.5 MG TABLET PO SCH ×2 (11:00→18:00)
[2020-07-09] MEDS: POTASSIUM CHLORIDE 10 MEQ TABLET PO SCH (11:29)
[2020-07-09] MEDS: LACOSAMIDE 50 MG TABLET PO SCH ×2 (11:29→21:34)
[2020-07-09] MEDS: SPIRONOLACTONE 25 MG TABLET PO SCH (11:29)
[2020-07-09] MEDS: MULTIVITAMIN (CENTRUM) TABLET PO SCH (11:29)
[2020-07-09] MEDS ORDERED: DIGOXIN 0.125 MG TABLET PO SCH (13:00)
[2020-07-09] MEDS: SILDENAFIL 20 MG TABLET PO SCH ×2 (14:56→21:34)
[2020-07-09] MEDS ORDERED: WARFARIN 2.5 MG TABLET PO ONE (18:00)
[2020-07-09] MEDS ORDERED: CHOLECALCIFEROL 1,000 UNIT TABLET PO SCH (21:00)
[2020-07-09] MEDS ORDERED: MIRTAZAPINE 15 MG TABLET PO SCH (21:00)
[2020-07-09] MEDS ORDERED: INSULIN GLARGINE 100 UNIT/ML SUBCUT SCH (21:00)
[2020-07-09] MEDS ORDERED: LOPERAMIDE 2 MG CAPSULE PO ONE (23:54)
[2020-07-10] MEDS: ALBUTEROL/IPRATROPIUM 3 ML NEB RESP TX SCH ×2 (00:23→07:25)
[2020-07-10 04:49] LABS: Basophils # 0.1 10*3/uL (0.0-0.2); Basophils % 1.2 % (0.0-0.8); Eosinophils # 0.2 10*3/uL (0.0-0.87); Hematocrit 39.2 VOL% (35.7-47.0); Hemoglobin 12.9 GM/DL (12.0-16.0); Immature Granulocytes % 0.8 %; Immature Granulocytes Absolute 0.05 #; Lymphocytes % 29.7 % (21.3-54.2); Mean Corpuscular HGB Conc 32.9 GM/DL (32-36); Mean Corpuscular Volume 68.2 FL (87-102); Monocytes % 5.4 % (1.7-12.7); Neutrophils % 59.9 % (38.7-73.9); Red Blood Count 5.75 MC/CUMM (3.8-5.5); White Blood Count 6.6 T/CUMM (4-12)
[2020-07-10 04:57] LABS: Platelet Count 52 T/CUMM (130-400)
[2020-07-10 05:08] LABS: Calcium 8.3 MG/DL (8.5-10.1); Osmolality,Calculated 279.4 MOS/KG (273-304)
[2020-07-10 05:14] LABS: Hypochromasia 1+; Platelet Estimate Decreased
[2020-07-10 08:22] VITALS: BP 121/69
[2020-07-10] MEDS: MULTIVITAMIN (CENTRUM) TABLET PO SCH (08:42)
[2020-07-10] MEDS: SPIRONOLACTONE 25 MG TABLET PO SCH (08:42)
[2020-07-10] MEDS: POTASSIUM CHLORIDE 10 MEQ TABLET PO SCH (08:42)
[2020-07-10] MEDS: LACOSAMIDE 50 MG TABLET PO SCH (08:42)
[2020-07-10] MEDS: SILDENAFIL 20 MG TABLET PO SCH (08:42)
[2020-07-10] MEDS: INSULIN REGULAR 100 UNIT/ML SUBCUT SCH (08:43)
[2020-07-10] MEDS ORDERED: FUROSEMIDE 40 MG TABLET PO SCH (09:00)
[2020-07-10] MEDS ORDERED: AMBRISENTAN 10 MG PO SCH (10:40)
== END 2020-07-10 08:59 | disposition home or self-care (01) ==
LOC: N.EDINP 17:13 → N.ED 17:13 → N.TELEN 20:36
PROVIDERS: ADMIT Internal Medicine; ATTEND Internal Medicine